=== PATIENT | female | born 1985 | race Caucasian/White ===

== ENCOUNTER 2022-04-14 20:05 | Inpatient (IN) | payer OTHER ==
[2022-04-14] MEDS ORDERED: AMPICILLIN SODIUM 2 GM VIAL ONE (21:19)
[2022-04-14] MEDS ORDERED: AMPICILLIN - 2 GM in SODIUM CHLORIDE 100 ML IVPB ONE (21:20)
[2022-04-14] MEDS ORDERED: LIDOCAINE HCL 1% PRESERVATIVE FREE - 30ML VIAL ONE (21:24)
[2022-04-14] MEDS ORDERED: OXYTOCIN 20 UNITS in 0.9% NS 20 UNIT/1,000 ML INFUS.BAG IV ONE (21:24)
[2022-04-14 21:38] VITALS: BMI 37.4
[2022-04-14 21:38] LABS: BASO % 0.3 % (0-2.0); EOS % 0.2 % (0-4.5); HEMATOCRIT 37.5 % (32.4-45.2); HEMOGLOBIN 12.6 GM/dL (10.7-15.3); LYMPH % 24.6 % (8-40); MCH 26.2 pg (25.7-33.7); MCHC 33.7 g/dl (32.0-36.0); MEAN CELL VOLUME 77.8 fl (80-96); MEAN PLT VOLUME 8.1 fl (7.5-11.1); MONO % 7.2 % (3.8-10.2); NEUT % 67.7 % (42.8-82.8); PLATELET COUNT 309 10^3/uL (134-434); RBC 4.81 M/mm3 (3.60-5.2); RDW 15.2 % (11.6-15.6); WHITE BLOOD COUNT 8.5 K/mm3 (4.0-10.0)
[2022-04-14 21:44] LABS: INR 0.86 (0.83-1.09); PROTHROMBIN TIME (PATIENT) 9.9 SEC (9.7-13.0)
[2022-04-14 22:00] LABS: BLOOD UREA NITROGEN 12.4 mg/dL (7-18); CALCIUM 9.1 mg/dL (8.5-10.1)
[2022-04-14 22:04] LABS: CREATININE 0.7 mg/dL (0.55-1.3)
[2022-04-14] MEDS ORDERED: OXYTOCIN 10 UNITS/ML VIAL ONE (22:58)
[2022-04-14] MEDS ORDERED: METHYLERGONOVINE MALEATE 0.2 MG/1 ML AMP IM PRN (23:16)
[2022-04-14] MEDS ORDERED: BISACODYL 10 MG SUPP.RECT RC PRN (23:16)
[2022-04-14] MEDS ORDERED: ACETAMINOPHEN 325 MG TABLET (FP) PO PRN (23:16)
[2022-04-14] MEDS ORDERED: BENZOCAINE 28 GM HEMORRHOIDAL OINTMENT TP PRN (23:16)
[2022-04-14] MEDS ORDERED: BENZOCAINE 20% 57 GM BOTTLE TP PRN (23:16)
[2022-04-14] MEDS ORDERED: oxyCODONE HCL 5 MG TABLET PO PRN (23:16)
[2022-04-14] MEDS ORDERED: WITCH HAZEL 50% (TUCKS) 40 PAD/JAR PAD TP PRN (23:16)
[2022-04-14] MEDS ORDERED: ELECTROLYTE-148 SOLN 1,000 ML IV SCH (23:30)
[2022-04-14] MEDS ORDERED: OXYTOCIN 20 UNITS in 0.9% NS 20 UNIT/1,000 ML INFUS.BAG IV SCH (23:30)
[2022-04-15] MEDS: IBUPROFEN 600 MG TABLET (FP) PO PRN ×2 (01:14→20:19)
[2022-04-15] MEDS ORDERED: AMPICILLIN - 1 GM in SODIUM CHLORIDE 100 ML IVPB SCH (01:20)
[2022-04-15 07:09] LABS: BASO % 0.1 % (0-2.0); HEMATOCRIT 32.6 % (32.4-45.2); HEMOGLOBIN 10.8 GM/dL (10.7-15.3); LYMPH % 8.1 % (8-40); MCH 25.9 pg (25.7-33.7); MEAN CELL VOLUME 78.6 fl (80-96); MEAN PLT VOLUME 8.5 fl (7.5-11.1); MONO % 6.4 % (3.8-10.2); NEUT % 85.4 % (42.8-82.8); PLATELET COUNT 244 10^3/uL (134-434); RBC 4.15 M/mm3 (3.60-5.2); RDW 15.3 % (11.6-15.6); WHITE BLOOD COUNT 12.3 K/mm3 (4.0-10.0)
[2022-04-15] MEDS: FERROUS SO4 325 MG TABLET (FP) PO SCH ×3 (09:35→17:53)
[2022-04-15] MEDS: PRENATAL VITAMINS W/ FOLIC ACID TABLET (FP) PO SCH (09:35)
[2022-04-15] MEDS ORDERED: SENNOSIDES/DOCUSATE COMBO (SENNA PLUS) TABLET (UD) PO PRN (22:00)
[2022-04-16] MEDS: IBUPROFEN 600 MG TABLET (FP) PO PRN ×2 (06:13→09:33)
[2022-04-16] MEDS: PRENATAL VITAMINS W/ FOLIC ACID TABLET (FP) PO SCH (09:32)
[2022-04-16] MEDS: FERROUS SO4 325 MG TABLET (FP) PO SCH ×2 (09:33→13:55)
[2022-04-16 11:47] VITALS: BP 123/79; PULSE 71; RESP 18; TEMP 98
== END 2022-04-16 12:40 | disposition home or self-care (01) | DRG 560 ==
LOC: JLDR 20:05 → J3W 04-15 00:48
PROVIDERS: ADMIT Obstetrics & Gynecology; ATTEND Obstetrics & Gynecology
PROC: 10E0XZZ Delivery of Products of Conception, External Approach (ICD-10-PCS; principal; 2022-04-14)
PROC: 0KQM0ZZ Repair Perineum Muscle, Open Approach (ICD-10-PCS; 2022-04-14)
DX: O41.93X0 Disorder of amniotic fluid and membranes, unspecified, third trimester, not applicable or unspecified (principal); O69.81X0 Labor and delivery complicated by cord around neck, without compression, not applicable or unspecified; O70.1 Second degree perineal laceration during delivery; O66.0 Obstructed labor due to shoulder dystocia; Z3A.39 39 weeks gestation of pregnancy; Z37.0 Single live birth
CPT/HCPCS: 36415; 59409; 80048; 85025; 85610; 85730; 86780; 86850; 86900; 86901; C9803-CS; U0003; U0005

== ENCOUNTER 2022-04-23 17:40 | Emergency (ER) | payer OTHER ==
[2022-04-23 17:49] VITALS: BP 129/84; PULSE 63; RESP 16; TEMP 98.2; BMI 36.8
== END 2022-04-23 19:22 | disposition home or self-care (01) ==
LOC: JER 17:40
DX: Z01.89 Encounter for other specified special examinations (principal)
CPT/HCPCS: 0241U-QW; 99282-25

== ENCOUNTER 2022-05-28 14:45 | Emergency (ER) | payer OTHER ==
[2022-05-28 15:03] VITALS: BP 149/83; PULSE 75; RESP 16; TEMP 98.1; BMI 36.8
[2022-05-28] MEDS ORDERED: ACETAMINOPHEN 325 MG TABLET (FP) PO ONE (16:34)
[2022-05-28] MEDS ORDERED: LIDOCAINE 5% TOPICAL PATCH TP ONE (16:34)
[2022-05-28] MEDS ORDERED: ACETAMINOPHEN 325 MG TABLET (FP) ONE (16:45)
[2022-05-28] MEDS ORDERED: LIDOCAINE 5% TOPICAL PATCH ONE (16:45)
[2022-05-28] MEDS ORDERED: LIDOCAINE PATCH REMOVAL MC SCH (22:00)
== END 2022-05-28 17:20 | disposition home or self-care (01) ==
LOC: JERFT 14:45
DX: S42.292A Other displaced fracture of upper end of left humerus, initial encounter for closed fracture (principal); W19.XXXA Unspecified fall, initial encounter
CPT/HCPCS: 73030-TC-LT-FY; 73562-TC-LT-FY; 99284-25